=== PATIENT | male | born 1990 | race Caucasian/White ===

== ENCOUNTER 2020-03-27 07:13 | Emergency (ER) | payer MEDICAID ==
[~2020-03-27] VITALS: Ht 177.8 cm; Wt 81.6 kg
[2020-03-27 07:14] VITALS: BP 139/73
--- NOTE | 2020-03-27 07:34 | NUR ---
Patient discharged to home in stable condition. Written and verbal after care instructions given. Patient verbalizes understanding of instruction.
== END 2020-03-27 07:34 | disposition home or self-care (01) ==
LOC: ER 07:18
DX: F41.0 Panic disorder [episodic paroxysmal anxiety] (principal); F20.9 Schizophrenia, unspecified; F31.9 Bipolar disorder, unspecified; Z59.0 Homelessness

== ENCOUNTER 2022-11-16 07:19 | Emergency (ER) | payer MEDICAID ==
[~2022-11-16] VITALS: Ht 180.3 cm; Wt 83.9 kg
--- NOTE | 2022-11-16 07:24 | NUR ---
CALLED TO TRIAGE, PT IS IN THE RESTROOM, WILL CALL AGAIN SHORTLY.
--- NOTE | 2022-11-16 07:41 | NUR ---
REQUESTING MED REFILL FOR WELBUTRIN AND ADDERALL. NO OTHER MEDICAL COMPLAINTS. PT IS BREATHING EVEN AND UNLABORED. WALKED TO THE ROOM WITH STEADY GAIT. AWAITING MD BETH
--- NOTE | 2022-11-16 07:46 | NUR ---
IN ROOM FOR PT EVAL
[2022-11-16] MEDS ORDERED: AMPH30CA3 PO (07:58)
[2022-11-16] MEDS ORDERED: BUPR300T52 PO (07:58)
[2022-11-16 09:05] VITALS: BP 136/74
== END 2022-11-16 08:10 | disposition home or self-care (01) ==
LOC: ER 07:22
DX: Z76.0 Encounter for issue of repeat prescription (principal); J45.909 Unspecified asthma, uncomplicated; F20.9 Schizophrenia, unspecified; F31.9 Bipolar disorder, unspecified; F17.200 Nicotine dependence, unspecified, uncomplicated; Z59.00 Homelessness unspecified
CPT/HCPCS: 99281; A4223

== ENCOUNTER 2023-01-05 13:07 | Emergency (ER) | payer MEDICAID ==
[~2023-01-05] VITALS: Ht 180.3 cm; Wt 83.9 kg
[~2023-01-05 13:07] MED LIST: AMPH30CA3 PO; BUPR300T52 PO
--- NOTE | 2023-01-05 13:18 | NUR ---
[id number], found unresponsive, narcan 4mg intranasal, narcan 2mg iv given captain/airline pilot. pt awake captain/airline pilot. bg 229, states found "cocaine" and snorted it.
--- NOTE | 2023-01-05 13:20 | NUR ---
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
--- NOTE | 2023-01-05 13:25 | NUR ---
PUT ON 3 LITERS O2
--- NOTE | 2023-01-05 13:27 | NUR ---
AOX4, REFUSED TO HAVE IV LINE ACCESS. EVEN AFTER EXPLAINING THAT HE MIGHT NEED IT FOR ANOTHER DOSE OF NALOXONE. MADE AWARE
--- NOTE | 2023-01-05 13:30 | NUR ---
AWAKE AND ALERT NO SIGNS AND SYMPTOMS OF DISTRESS.
[2023-01-05] MEDS ORDERED: NALO4SPR BNOSTRILS (15:09)
--- NOTE | 2023-01-05 16:28 | NUR ---
Patient discharged to home in stable condition. Written and verbal after care instructions given. Patient verbalizes understanding of instruction.
[2023-01-05 16:29] VITALS: BP 119/78; TEMP 98.1
== END 2023-01-05 16:29 | disposition home or self-care (01) ==
LOC: ER 13:13
DX: R40.4 Transient alteration of awareness (principal); T40.2X1A Poisoning by other opioids, accidental (unintentional), initial encounter; J45.909 Unspecified asthma, uncomplicated; F20.9 Schizophrenia, unspecified; F31.9 Bipolar disorder, unspecified; F17.200 Nicotine dependence, unspecified, uncomplicated; Z59.00 Homelessness unspecified; Y92.410 Unspecified street and highway as the place of occurrence of the external cause

== ENCOUNTER 2023-08-12 19:40 | Emergency (ER) | payer MEDICAID, OTHER ==
[~2023-08-12] VITALS: Ht 180.3 cm; Wt 83.9 kg
[~2023-08-12 19:40] MED LIST changes: +BUPR-96 PO; +NALO4SPR BNOSTRILS
[2023-08-12 20:15] VITALS: BP 190/123; TEMP 97.7; O2SAT 99
[2023-08-12] MEDS ORDERED: SULFAMETH/TRIMETH 800/160 MG 1 UDTAB TABLET ONE (20:57)
[2023-08-12] MEDS: SULFAMETH/TRIMETH 800/160 MG 1 UDTAB TABLET PO ONE (20:59)
[2023-08-12] MEDS ORDERED: SULF1TAB48 PO (21:04)
== END 2023-08-12 21:19 | disposition left against medical advice (07) ==
LOC: ER 19:46
DX: S60.447A External constriction of left little finger, initial encounter (principal); L03.012 Cellulitis of left finger; M79.645 Pain in left finger(s); F17.200 Nicotine dependence, unspecified, uncomplicated; Z59.00 Homelessness unspecified; W49.04XA Ring or other jewelry causing external constriction, initial encounter; Y93.89 Activity, other specified; Y92.89 Other specified places as the place of occurrence of the external cause; Y99.8 Other external cause status

== ENCOUNTER 2023-12-13 19:27 | Emergency (ER) | payer OTHER ==
[~2023-12-13] VITALS: Ht 180.3 cm; Wt 81.6 kg
[~2023-12-13 19:27] MED LIST changes: +BUPR150T12 PO; +DEXT30CA6 PO; +SULF1TAB48 PO
[2023-12-13 19:42] VITALS: BP 138/84; TEMP 98
[2023-12-13] MEDS ORDERED: BUPR-319 PO (19:54)
[2023-12-13 19:55] VITALS: O2SAT 99
== END 2023-12-13 19:57 | disposition home or self-care (01) ==
LOC: ER 19:31
DX: F95.2 Tourette's disorder (principal); Z76.0 Encounter for issue of repeat prescription; F17.200 Nicotine dependence, unspecified, uncomplicated; Z88.8 Allergy status to other drugs, medicaments and biological substances; Z59.00 Homelessness unspecified; Z79.899 Other long term (current) drug therapy